=== PATIENT | female | born 1990 | race Hispanic/Latino ===

== ENCOUNTER 2016-12-31 07:18 | Inpatient (IN) | payer OTHER ==
[~2016-12-31] VITALS: Ht 152.4 cm; Wt 75.9 kg
[2016-12-31] VITALS (8 sets, daily range): BP systolic 101–123; BP diastolic 58–79
[~2016-12-31 07:18] MED LIST: KEFLEX500 MG PO; PRENATAL TABLE1 EAC3 PO; VALTREX1000 MG PO
[2016-12-31 08:30] LABS: HEMATOCRIT 35.5 % (36.0-46.0); MCH 22.8 PG (29.0-34.0); MCHC 31.3 G/DL (30.0-36.0); MCV 72.9 FL (83-99); PLATELET COUNT 295 K/uL (156-360); RBC DIS.WIDTH-CV 17.8 % (11.8-14.6); RBC DIS.WIDTH-SD 46.3 % (39-53); RED BLOOD COUNT 4.87 M/uL (3.80-5.20); WHITE BLOOD COUNT 9.3 K/uL (4.1-10.2)
[2016-12-31 08:46] LABS: EOSINOPHIL (%) 0.5 % (0-5); EOSINOPHIL COUNT 0.1 K/uL (0-0.3); IMMATURE GRANULOCYTE (%) 0.6 % (0.0-0.7); IMMATURE GRANULOCYTE COUNT 0.1 K/uL; LYMPHOCYTE COUNT 2.6 K/uL (1.0-2.8); MONOCYTE (%) 6.8 % (3-12); MONOCYTE COUNT 0.6 K/uL (0-0.8); NEUTROPHIL (%) 64.4 % (45-76)
[2017-01-01 03:52] VITALS: BP 106/72
[2017-01-01 07:50] LABS: EOSINOPHIL (%) 0.2 % (0-5); HEMATOCRIT 27.8 % (36.0-46.0); IMMATURE GRANULOCYTE (%) 0.3 % (0.0-0.7); LYMPHOCYTE COUNT 2.8 K/uL (1.0-2.8); MCH 22.8 PG (29.0-34.0); MCHC 30.9 G/DL (30.0-36.0); MCV 73.7 FL (83-99); MEAN PLAT.VOLUME 9.9 uM^3 (9.5-12.4); MONOCYTE (%) 7.7 % (3-12); MONOCYTE COUNT 0.9 K/uL (0-0.8); NEUTROPHIL (%) 68.3 % (45-76); NEUTROPHIL COUNT 8.3 K/uL (1.8-6.4); PLATELET COUNT 224 K/uL (156-360); RBC DIS.WIDTH-CV 17.6 % (11.8-14.6); RBC DIS.WIDTH-SD 47.2 % (39-53); RED BLOOD COUNT 3.77 M/uL (3.80-5.20); WHITE BLOOD COUNT 12.1 K/uL (4.1-10.2)
[2017-01-01 07:58] VITALS: BP 99/62
[2017-01-01 11:26] VITALS: BP 96/57
[2017-01-01 15:39] VITALS: BP 106/57
[2017-01-01 19:40] VITALS: BP 113/69
[2017-01-01 23:35] VITALS: BP 112/82
[2017-01-02 03:30] VITALS: BP 105/76
[2017-01-02 07:48] VITALS: BP 103/68
[2017-01-02 14:48] VITALS: BP 120/70
[2017-01-02 22:21] VITALS: BP 118/72
[2017-01-03 08:11] VITALS: BP 112/76
[2017-01-03 15:52] VITALS: BP 101/63
[2017-01-03 22:37] VITALS: BP 116/74
[2017-01-04 07:48] VITALS: BP 100/61
[2017-01-04] MEDS ORDERED: FERROUS SULFAT325 MG PO (09:55)
[2017-01-04] MEDS ORDERED: IBUPROFEN800 MG PO (09:55)
[2017-01-04] MEDS ORDERED: HYDROMORPHONE HC2 MG PO (09:55)
[2017-01-04 15:00] VITALS: BP 97/64
== END 2017-01-04 17:26 | disposition home or self-care (01) | DRG 765 ==
LOC: 2WEST 07:18 → 2SOUTH 11:14 → 2WEST 01-04 17:26
PROVIDERS: Obstetrics & Gynecology Obstetrics
DX: O34.211 Maternal care for low transverse scar from previous cesarean delivery (principal); D62 Acute posthemorrhagic anemia; F33.9 Major depressive disorder, recurrent, unspecified; O41.03X1 Oligohydramnios, third trimester, fetus 1; Z37.0 Single live birth; Z3A.39 39 weeks gestation of pregnancy; O99.344 Other mental disorders complicating childbirth; N99.4 Postprocedural pelvic peritoneal adhesions; O99.214 Obesity complicating childbirth; L50.0 Allergic urticaria; O99.73 Diseases of the skin and subcutaneous tissue complicating the puerperium; O99.02 Anemia complicating childbirth; D50.9 Iron deficiency anemia, unspecified; E66.3 Overweight; Z68.32 Body mass index [BMI] 32.0-32.9, adult
CPT/HCPCS: 85025; 86850; 86900; 86901; J0690; J1100; J1885; J2250; J2274; J2405; J2765; J3010; J7050; J7120

== ENCOUNTER 2017-12-05 15:28 | Emergency (ER) | payer SELFPAY ==
[~2017-12-05] VITALS: Ht 157.5 cm; Wt 65.4 kg
[~2017-12-05 15:28] MED LIST changes: +FERROUS SULFAT325 MG PO; +HYDROMORPHONE HC2 MG PO; +IBUPROFEN800 MG PO
[2017-12-05 15:50] LABS: HEMATOCRIT 41.8 % (36.0-46.0); HEMOGLOBIN 13.9 G/DL (11.9-15.5); MCH 28.1 PG (29.0-34.0); MCHC 33.3 G/DL (30.0-36.0); MCV 84.4 FL (83-99); PLATELET COUNT 322 K/uL (156-360); RBC DIS.WIDTH-CV 13.2 % (11.8-14.6); RBC DIS.WIDTH-SD 40.7 % (39-53); RED BLOOD COUNT 4.95 M/uL (3.80-5.20); WHITE BLOOD COUNT 9.6 K/uL (4.1-10.2)
[2017-12-05 16:00] LABS: ALBUMIN 4.6 g/dL (3.2-4.8); CHLORIDE 105 mEq/L (99-109); POTASSIUM 3.9 mEq/L (3.7-5.4); SODIUM 135 mEq/L (136-147)
[2017-12-05 16:02] LABS: GLUCOSE 86 mg/dL (70-99)
[2017-12-05 16:03] LABS: TOTAL PROTEIN 8.3 g/dL (6.4-8.3)
[2017-12-05 16:04] LABS: TOTAL BILIRUBIN 0.7 mg/dL (0.0-1.0)
[2017-12-05 16:06] LABS: ALKALINE PHOSPHATASE 157 IU/L (3-129); CREATININE 0.7 mg/dL (0.6-1.3); GFR ESTIMATE (CALCULATED) > 59 mL/min/
[2017-12-05 16:07] LABS: UREA NITROGEN (BUN) 12 mg/dL (9-23)
[2017-12-05 16:08] LABS: AST (GOT) 25 IU/L (2-34)
[2017-12-05 16:09] LABS: ALT (GPT) 20 IU/L (3-49)
[2017-12-05 16:15] LABS: QUANTITATIVE HCG < 4.0 MIU/ML
[2017-12-05 18:25] LABS: APPEARANCE CLEAR ((CLEAR)); BILIRUBIN NEGATIVE; BLOOD NEGATIVE; COLOR YELLOW ((YELLOW)); GLUCOSE (STRIP) NEGATIVE; KETONES NEGATIVE; LEUKOCYTES NEGATIVE; NITRITE NEGATIVE; PROTEIN (STRIP) NEGATIVE; SPECIFIC GRAVITY 1.015 (1.000-1.030); UCUL ADDED? NO; UROBILINOGEN 0.2 MG/DL (0.2-1.0)
[2017-12-05] MEDS ORDERED: ZOFRAN4 MG PO (20:15)
[2017-12-05 21:07] VITALS: BP 112/66
== END 2017-12-05 21:42 | disposition home or self-care (01) ==
LOC: EME 15:28
DX: B34.9 Viral infection, unspecified (principal); Z88.5 Allergy status to narcotic agent
CPT/HCPCS: 80053; 81003; 83630; 84702; 85027; 87177; 87493; 87506; 99281; 99284